=== PATIENT | female | born 1935 | race Native Hawaiian/Other Pacific Islander ===

== ENCOUNTER 2016-10-24 08:51 | Outpatient (CLI) | payer OTHER, MEDICARE ==
[~2016-10-24 08:51] MED LIST: BACLOFEN10 MG OR; BACTRIM1 TAB PO; CEPH500C20 PO; CIPRO500 MG PO; CLON0.5T36 PO; ESTR0.3T3 PO; LOSA50TA PO; OXYC5TAB53 PO; RANI150T78 PO; TRAM50TA PO; TRAMADL/APAP1 TAB OR
[2016-10-24 09:30] LABS: PLATELET COUNT 169 K/uL (152-353); POTASSIUM 4.6 mmol/L (3.6-5.2)
== END 2016-10-24 23:39 | disposition home or self-care (01) ==
LOC: LABW 08:51
PROVIDERS: Internal Medicine Nephrology
DX: I12.9 Hypertensive chronic kidney disease with stage 1 through stage 4 chronic kidney disease, or unspecified chronic kidney disease (principal); N18.4 Chronic kidney disease, stage 4 (severe); Q61.2 Polycystic kidney, adult type
CPT/HCPCS: 36415; 80053; 81000; 82306; 82570; 83970; 84100; 84155; 85027

== ENCOUNTER 2017-02-13 08:35 | Outpatient (CLI) | payer OTHER, MEDICARE | END 2017-02-13 19:25 | disposition home or self-care (01) | LOC: MAMMO 08:35 | DX: Z12.31 Encounter for screening mammogram for malignant neoplasm of breast (principal) | CPT/HCPCS: G0202-TC ==

== ENCOUNTER 2017-03-19 08:51 | Outpatient (CLI) | payer OTHER, MEDICARE ==
[2017-03-19 09:12] LABS: PLATELET COUNT 141 K/uL (152-353)
[2017-03-19 10:04] LABS: POTASSIUM 4.5 mmol/L (3.6-5.2)
== END 2017-03-19 19:06 | disposition home or self-care (01) ==
LOC: LABW 08:51
PROVIDERS: Internal Medicine Nephrology
DX: N18.4 Chronic kidney disease, stage 4 (severe) (principal); Q61.2 Polycystic kidney, adult type
CPT/HCPCS: 36415; 80053; 82306; 83970; 84100; 85027

== ENCOUNTER 2017-04-10 11:32 | Outpatient (CLI) | payer OTHER, MEDICARE ==
[2017-04-10] MEDS ORDERED: METO50TA27 PO (19:32)
== END 2017-04-10 12:35 | disposition home or self-care (01) ==
LOC: LAB 11:32
DX: A08.39 Other viral enteritis (principal)
CPT/HCPCS: 87015; 87045; 87077; 87185; 87186; 87328; 87329; 87899

== ENCOUNTER 2017-04-10 19:15 | Emergency (ER) | payer OTHER, MEDICARE ==
[~2017-04-10] VITALS: Ht 160 cm; Wt 52.2 kg
[2017-04-10] MEDS ORDERED: METO50TA27 PO (19:32)
[2017-04-10 21:15] VITALS: BP 139/68; TEMP 97.6
== END 2017-04-10 21:15 | disposition home or self-care (01) ==
LOC: ED 19:15
DX: M47.892 Other spondylosis, cervical region (principal)
CPT/HCPCS: 96372; 99283; J1885

== ENCOUNTER 2017-05-27 09:40 | Outpatient (CLI) | payer OTHER, MEDICARE ==
[~2017-05-27 09:40] MED LIST changes: +METO50TA27 PO
[2017-05-27 10:09] LABS: PLATELET COUNT 138 K/uL (152-353)
[2017-05-27 10:33] LABS: POTASSIUM 4.3 mmol/L (3.6-5.2)
== END 2017-05-27 10:40 | disposition home or self-care (01) ==
LOC: LABW 09:40
PROVIDERS: Internal Medicine
DX: I10 Essential (primary) hypertension (principal)
CPT/HCPCS: 36415; 80053; 80061; 81000; 84443; 85027

== ENCOUNTER 2017-06-26 09:15 | Outpatient (CLI) | payer OTHER, MEDICARE ==
[2017-06-26 09:50] LABS: PLATELET COUNT 155 K/uL (152-353)
[2017-06-26 10:01] LABS: POTASSIUM 4.2 mmol/L (3.6-5.2)
== END 2017-06-26 19:06 | disposition home or self-care (01) ==
LOC: LABW 09:15
PROVIDERS: Internal Medicine Nephrology
DX: N18.4 Chronic kidney disease, stage 4 (severe) (principal); Q61.2 Polycystic kidney, adult type
CPT/HCPCS: 36415; 80053; 83970; 84100; 85027

== ENCOUNTER 2017-11-01 08:24 | Outpatient (CLI) | payer OTHER, MEDICARE ==
[2017-11-01 08:46] LABS: PLATELET COUNT 170 K/uL (152-353)
[2017-11-01 08:55] LABS: POTASSIUM 4.4 mmol/L (3.6-5.2)
[2017-11-01] MEDS ORDERED: OMEPRAZOLE20 M1 PO (11:05)
[2017-11-01] MEDS ORDERED: CEPHALEXIN250 MG PO (11:05)
== END 2017-11-01 19:22 | disposition home or self-care (01) ==
LOC: LABW 08:24
PROVIDERS: Internal Medicine Nephrology
DX: N18.4 Chronic kidney disease, stage 4 (severe) (principal); Q61.2 Polycystic kidney, adult type
CPT/HCPCS: 36415; 80053; 83970; 84100; 85027

== ENCOUNTER 2017-11-01 10:53 | Emergency (ER) | payer OTHER, MEDICARE ==
[~2017-11-01] VITALS: Ht 160 cm; Wt 53.1 kg
[2017-11-01] MEDS ORDERED: CEPHALEXIN250 MG PO (11:05)
[2017-11-01] MEDS ORDERED: OMEPRAZOLE20 M1 PO (11:05)
[2017-11-01 13:10] VITALS: BP 135/56; TEMP 97.6
== END 2017-11-01 13:10 | disposition home or self-care (01) ==
LOC: ED 10:53
DX: J32.9 Chronic sinusitis, unspecified (principal); M54.81 Occipital neuralgia; N18.4 Chronic kidney disease, stage 4 (severe); Q61.2 Polycystic kidney, adult type
CPT/HCPCS: 36415; 80053; 83970; 84100; 85027; 96365; 96374; 96375; 99284; J0696; J1100; J1200; J1885; J2550

== ENCOUNTER 2017-11-13 00:31 | Emergency (ER) | payer OTHER, MEDICARE ==
[~2017-11-13] VITALS: Ht 157.5 cm; Wt 56.7 kg
[~2017-11-13 00:31] MED LIST changes: +CEPHALEXIN250 MG PO; +OMEPRAZOLE20 M1 PO
[2017-11-13 01:26] LABS: PLATELET COUNT 153 K/uL (152-353)
[2017-11-13 02:31] VITALS: BP 166/57; TEMP 98.7
== END 2017-11-13 02:33 | disposition home or self-care (01) ==
LOC: ED 00:31
DX: M46.82 Other specified inflammatory spondylopathies, cervical region (principal); J32.0 Chronic maxillary sinusitis
CPT/HCPCS: 36415; 85027; 96372; 99283; J1885

== ENCOUNTER 2018-03-04 09:16 | Outpatient (CLI) | payer OTHER, MEDICARE ==
[2018-03-04 09:45] LABS: POTASSIUM 4.1 mmol/L (3.6-5.2)
[2018-03-04 09:47] LABS: PLATELET COUNT 148 K/uL (152-353)
== END 2018-03-04 22:20 | disposition home or self-care (01) ==
LOC: LABW 09:16
PROVIDERS: Internal Medicine Nephrology
DX: N18.4 Chronic kidney disease, stage 4 (severe) (principal); Q61.2 Polycystic kidney, adult type
CPT/HCPCS: 36415; 80053; 83970; 84100; 85027

== ENCOUNTER 2018-09-01 11:39 | Outpatient (CLI) | payer OTHER, MEDICARE ==
[2018-09-01 12:29] LABS: PLATELET COUNT 172 K/uL (152-353)
[2018-09-01 13:02] LABS: POTASSIUM 4.9 mmol/L (3.6-5.2)
== END 2018-09-01 20:35 | disposition home or self-care (01) ==
LOC: LABW 11:39
PROVIDERS: Internal Medicine
DX: Z00.00 Encounter for general adult medical examination without abnormal findings (principal); Z12.31 Encounter for screening mammogram for malignant neoplasm of breast; E78.00 Pure hypercholesterolemia, unspecified; R82.998 Other abnormal findings in urine
CPT/HCPCS: 36415; 80053; 80061; 81000; 84439; 84443; 85027; 87088

== ENCOUNTER 2018-09-18 10:54 | Outpatient (CLI) | payer OTHER, MEDICARE | END 2018-09-18 21:44 | disposition home or self-care (01) | LOC: RAD 10:54 | DX: Z13.820 Encounter for screening for osteoporosis (principal); Z78.0 Asymptomatic menopausal state ==

== ENCOUNTER 2018-12-12 14:52 | Emergency (ER) | payer OTHER, MEDICARE ==
[~2018-12-12] VITALS: Ht 157.5 cm; Wt 52.2 kg
[2018-12-12 15:38] VITALS: BP 163/55; TEMP 97.6
== END 2018-12-12 15:43 | disposition home or self-care (01) ==
LOC: ED 14:52
DX: L02.511 Cutaneous abscess of right hand (principal)
CPT/HCPCS: 99281

== ENCOUNTER 2019-08-14 09:57 | Outpatient (CLI) | payer OTHER, MEDICARE ==
[2019-08-14 10:26] LABS: PLATELET COUNT 157 K/uL (152-353)
== END 2019-08-14 19:08 | disposition home or self-care (01) ==
LOC: LABW 09:57
PROVIDERS: Internal Medicine
DX: I10 Essential (primary) hypertension (principal); R82.998 Other abnormal findings in urine
CPT/HCPCS: 36415; 80053; 80061; 81000; 84439; 84443; 85027; 87077; 87086; 87088; 87186

== ENCOUNTER 2019-11-26 16:04 | Outpatient (CLI) | payer OTHER, MEDICARE | END 2019-11-26 20:55 | disposition home or self-care (01) | LOC: CT 16:04 | DX: R41.0 Disorientation, unspecified (principal) ==

== ENCOUNTER 2021-03-30 08:25 | Outpatient (CLI) | payer OTHER, MEDICARE ==
[2021-04-05 15:35] LABS: PLATELET COUNT 152 K/uL (152-353)
[2021-04-05 17:17] LABS: POTASSIUM 4.6 mmol/L (3.6-5.2)
== END 2021-03-30 17:00 | disposition home or self-care (01) ==
LOC: LABW 08:25
PROVIDERS: ATTEND Internal Medicine
DX: I10 Essential (primary) hypertension (principal); R82.998 Other abnormal findings in urine
CPT/HCPCS: 36415; 80053; 80061; 80307; 81000; 83735; 84439; 84443; 85027; 87077; 87086; 87088; 87186

== ENCOUNTER 2021-04-25 08:32 | Outpatient (CLI) | payer OTHER, MEDICARE ==
[2021-04-25 08:50] LABS: PLATELET COUNT 139 K/uL (152-353)
== END 2021-04-25 20:34 | disposition home or self-care (01) ==
LOC: LABW 08:32
PROVIDERS: ATTEND Internal Medicine
DX: I10 Essential (primary) hypertension (principal)
CPT/HCPCS: 36415; 80053; 80061; 81000; 83735; 84439; 84443; 85027

== ENCOUNTER 2021-05-10 13:13 | Outpatient (CLI) | payer OTHER, MEDICARE | END 2021-05-10 19:03 | disposition home or self-care (01) | LOC: LAB 13:13 | PROVIDERS: ATTEND Internal Medicine | DX: T25.221A Burn of second degree of right foot, initial encounter (principal) | CPT/HCPCS: 87070; 87205 ==

== ENCOUNTER 2021-09-13 13:57 | Outpatient (CLI) | payer OTHER, MEDICARE | END 2021-09-13 20:23 | disposition home or self-care (01) | LOC: RAD 13:57 | PROVIDERS: ATTEND Internal Medicine | DX: J40 Bronchitis, not specified as acute or chronic (principal) ==

== ENCOUNTER 2021-10-23 16:29 | Outpatient (CLI) | payer OTHER, MEDICARE | END 2021-10-23 22:12 | disposition home or self-care (01) | LOC: LAB 16:29 | PROVIDERS: ATTEND Internal Medicine | DX: N39.0 Urinary tract infection, site not specified (principal) | CPT/HCPCS: 87088 ==

== ENCOUNTER 2022-08-26 19:01 | Emergency (ER) | payer OTHER, MEDICARE ==
[~2022-08-26] VITALS: Ht 167.6 cm; Wt 58.5 kg
[2022-08-26 21:55] VITALS: BP 176/67
== END 2022-08-26 21:55 | disposition home or self-care (01) ==
LOC: ED 19:01
DX: S70.01XA Contusion of right hip, initial encounter (principal); W01.0XXA Fall on same level from slipping, tripping and stumbling without subsequent striking against object, initial encounter; Y92.098 Other place in other non-institutional residence as the place of occurrence of the external cause
CPT/HCPCS: 96372; 99283; J1885

== ENCOUNTER 2022-10-02 14:53 | Outpatient (CLI) | payer OTHER, MEDICARE ==
[~2022-10-02 14:53] MED LIST changes: +OMEP20CA PO; -OMEPRAZOLE20 M1 PO
[2022-10-02] MEDS ORDERED: 904272561 PO (17:41)
[2022-10-07] MEDS ORDERED: TRAZ50TA36 PO (17:42)
[2022-10-07] MEDS ORDERED: LATA0.00 OPTH (17:43)
== END 2022-10-02 19:03 | disposition home or self-care (01) ==
LOC: LAB 14:53
PROVIDERS: ATTEND Internal Medicine
DX: N39.0 Urinary tract infection, site not specified (principal)
CPT/HCPCS: 81000; 87086; 87088

== ENCOUNTER 2022-10-10 08:52 | Emergency (ER) | payer OTHER, MEDICARE ==
[~2022-10-10] VITALS: Ht 162.6 cm; Wt 59.9 kg
[~2022-10-10 08:52] MED LIST changes: +904272561 PO; +LATA0.00 OPTH; +LEVO250T2 PO; +TRAZ50TA36 PO
[2022-10-10 08:56] VITALS: TEMP 97.7
[2022-10-10 09:33] LABS: PLATELET COUNT 134 K/uL (152-353)
[2022-10-10 09:44] LABS: POTASSIUM 3.8 mmol/L (3.6-5.2)
[2022-10-10 12:00] VITALS: BP 154/73
== END 2022-10-10 12:19 | disposition short-term general hospital (02) ==
LOC: ED 08:52
PROVIDERS: Emergency Medicine Emergency Medical Services
DX: S72.011A Unspecified intracapsular fracture of right femur, initial encounter for closed fracture (principal); F03.90 Unspecified dementia, unspecified severity, without behavioral disturbance, psychotic disturbance, mood disturbance, and anxiety; W18.39XA Other fall on same level, initial encounter; Y92.89 Other specified places as the place of occurrence of the external cause
CPT/HCPCS: 36415; 80048; 85027; 96360; 96361; 96374; 96375; 96376; 99284; J2270; J2405

== ENCOUNTER 2022-10-15 15:56 | Inpatient (IN) | payer OTHER, MEDICARE | END 2022-10-17 14:34 | disposition home or self-care (01) | LOC: PAVB 15:56 | PROVIDERS: ADMIT Family Medicine; ATTEND Family Medicine | DX: S72.041D Displaced fracture of base of neck of right femur, subsequent encounter for closed fracture with routine healing (principal); N39.0 Urinary tract infection, site not specified; M62.81 Muscle weakness (generalized); R26.2 Difficulty in walking, not elsewhere classified; R27.8 Other lack of coordination; Z74.1 Need for assistance with personal care; R41.841 Cognitive communication deficit | CPT/HCPCS: 87081 ==

== ENCOUNTER 2022-10-17 05:40 | Emergency (ER) | payer OTHER, MEDICARE ==
[~2022-10-17] VITALS: Ht 160 cm; Wt 57.6 kg
[2022-10-17 05:40] VITALS: TEMP 97.9
[2022-10-17 08:00] VITALS: BP 163/62
== END 2022-10-17 10:03 ==
LOC: ED 05:40
DX: S70.01XA Contusion of right hip, initial encounter (principal); Z96.641 Presence of right artificial hip joint; N39.0 Urinary tract infection, site not specified; F03.90 Unspecified dementia, unspecified severity, without behavioral disturbance, psychotic disturbance, mood disturbance, and anxiety; M25.511 Pain in right shoulder; W06.XXXA Fall from bed, initial encounter; Y92.122 Bedroom in nursing home as the place of occurrence of the external cause
CPT/HCPCS: 96372; 99283; J1885

== ENCOUNTER 2022-11-01 13:36 | Inpatient (IN) | payer OTHER | END 2022-11-28 14:20 | disposition still patient (30) | LOC: PAVB 13:36 | PROVIDERS: ADMIT Internal Medicine; ATTEND Internal Medicine ==

== ENCOUNTER 2022-11-28 14:34 | Inpatient (IN) | payer OTHER | END 2022-12-29 12:10 | disposition still patient (30) | LOC: PAVB 14:34 | PROVIDERS: ADMIT Internal Medicine; ATTEND Internal Medicine ==

== ENCOUNTER 2022-12-29 12:18 | Inpatient (IN) | payer OTHER | END 2023-01-28 14:06 | disposition still patient (30) | LOC: PAVB 12:18 | PROVIDERS: ADMIT Internal Medicine; ATTEND Internal Medicine ==

== ENCOUNTER 2023-01-28 14:22 | Inpatient (IN) | payer OTHER | END 2023-02-28 11:30 | disposition still patient (30) | LOC: PAVB 14:22 | PROVIDERS: ADMIT Internal Medicine; ATTEND Internal Medicine ==

== ENCOUNTER 2023-02-28 11:39 | Inpatient (IN) | payer SELFPAY | END 2023-03-30 17:37 | disposition still patient (30) | LOC: PAVB 11:39 | PROVIDERS: ADMIT Internal Medicine; ATTEND Internal Medicine ==

== ENCOUNTER 2023-04-17 06:00 | Outpatient (CLI) | payer SELFPAY | END 2023-04-17 19:54 | disposition home or self-care (01) | LOC: LAB 06:00 | PROVIDERS: ATTEND Internal Medicine | DX: N39.0 Urinary tract infection, site not specified (principal); F03.911 Unspecified dementia, unspecified severity, with agitation; R41.82 Altered mental status, unspecified | CPT/HCPCS: 81000; 87077; 87086; 87088; 87186 ==

== ENCOUNTER 2023-07-18 15:00 | Outpatient (CLI) | payer OTHER | END 2023-07-18 19:08 | disposition home or self-care (01) | LOC: LAB 15:00 | PROVIDERS: ATTEND Internal Medicine | DX: R41.82 Altered mental status, unspecified (principal) | CPT/HCPCS: 81000; 87088 ==